=== PATIENT | female | born 1995 | race Caucasian/White ===

== ENCOUNTER 2017-01-12 09:21 | Outpatient (CLI) | payer BC ==
[~2017-01-12] VITALS: Ht 157.5 cm; Wt 100.0 kg
[2017-01-12 09:33] VITALS: BP 154/74
[2017-01-12] MEDS ORDERED: PRENATAL TABLE1 EAC3 PO (09:50)
[2017-01-12 10:57] VITALS: BP 118/72
[2017-01-12 12:29] VITALS: BP 111/64
== END 2017-01-12 13:26 | disposition home or self-care (01) ==
LOC: LDRP-OP 09:21 → 2WEST 09:22 → LDRP-OP 03-09 13:13
DX: O32.1XX0 Maternal care for breech presentation, not applicable or unspecified (principal); Z3A.00 Weeks of gestation of pregnancy not specified
CPT/HCPCS: 59025; G0378; J3105

== ENCOUNTER 2017-01-30 11:17 | Inpatient (IN) | payer BC ==
[~2017-01-30] VITALS: Ht 157.5 cm; Wt 103.1 kg
[~2017-01-30 11:17] MED LIST: PRENATAL TABLE1 EAC3 PO
[2017-01-30 11:43] VITALS: BP 117/61
[2017-01-30] MEDS ORDERED: IBUPROFEN800 MG PO (12:31)
[2017-01-30] MEDS ORDERED: ENDOCET 5-3251 EACH PO (12:31)
[2017-01-30 12:43] VITALS: BP 117/66
[2017-01-30 16:45] VITALS: BP 117/75
[2017-01-30 18:21] VITALS: BP 122/66
[2017-01-30 20:37] VITALS: BP 124/65
[2017-01-30 22:30] VITALS: BP 109/57
[2017-01-31 00:25] VITALS: BP 105/55
[2017-01-31 02:22] VITALS: BP 107/57
[2017-01-31 06:45] LABS: EOSINOPHIL (%) 2.2 % (0-5); EOSINOPHIL COUNT 0.2 K/uL (0-0.3); HEMATOCRIT 29.3 % (36.0-46.0); IMMATURE GRANULOCYTE COUNT 0.1 K/uL; INSTRUMENT ABS NEUTROPHIL CT 8.1 K/uL; LYMPHOCYTE COUNT 1.5 K/uL (1.0-2.8); MCH 26.9 PG (29.0-34.0); MCHC 33.1 G/DL (30.0-36.0); MCV 81.4 FL (83-99); MEAN PLAT.VOLUME 10.7 uM^3 (9.5-12.4); MONOCYTE (%) 8.2 % (3-12); MONOCYTE COUNT 0.9 K/uL (0-0.8); NEUTROPHIL (%) 74.3 % (45-76); NEUTROPHIL COUNT 8.1 K/uL (1.8-6.4); PLATELET COUNT 133 K/uL (156-360); RBC DIS.WIDTH-CV 13.6 % (11.8-14.6); RBC DIS.WIDTH-SD 40.2 % (39-53)
[2017-01-31 19:19] VITALS: BP 108/59
[2017-01-31 22:22] VITALS: BP 123/69
[2017-02-01 02:59] VITALS: BP 95/52
[2017-02-01 07:30] VITALS: BP 113/59
[2017-02-01 11:32] VITALS: BP 110/62
[2017-02-01 14:41] VITALS: BP 118/62
[2017-02-01 22:38] VITALS: BP 120/58
[2017-02-02 07:43] VITALS: BP 124/63
== END 2017-02-02 13:30 | disposition home or self-care (01) | DRG 766 ==
LOC: 2SOUTH → 2WEST 11:17 → 2SOUTH 13:30 → 2WEST 02-02 13:30
PROVIDERS: Obstetrics & Gynecology Gynecology
PROC: 10D00Z1 Extraction of Products of Conception, Low, Open Approach (ICD-10-PCS; principal; 2017-01-30)
DX: O32.1XX0 Maternal care for breech presentation, not applicable or unspecified (principal); O99.214 Obesity complicating childbirth; O69.81X0 Labor and delivery complicated by cord around neck, without compression, not applicable or unspecified; E66.9 Obesity, unspecified; O99.824 Streptococcus B carrier state complicating childbirth; Z37.0 Single live birth; Z68.30 Body mass index [BMI] 30.0-30.9, adult; Z3A.39 39 weeks gestation of pregnancy
CPT/HCPCS: 36415; 85025; 86850; 86900; 86901; J0131; J1885; J2175; J2274; J2405; J2590; J3010; J7120